=== PATIENT | male | born 1995 | race African-American/Black ===

== ENCOUNTER 2017-04-30 17:35 | Emergency (ER) | payer SELFPAY | END 2017-04-30 17:49 | disposition left against medical advice (07) | LOC: UCEAST 17:35 | DX: S01.511A Laceration without foreign body of lip, initial encounter (principal); X58.XXXA Exposure to other specified factors, initial encounter; Z53.21 Procedure and treatment not carried out due to patient leaving prior to being seen by health care provider ==

== ENCOUNTER 2019-02-16 17:25 | Emergency (ER) | payer OTHER ==
[2019-02-16] MEDS ORDERED: Lorazepam PYXIS KEY PRN (18:23)
[2019-02-16] MEDS ORDERED: LORazepam INJ* 2 MG/ML 1 ML VIAL IM ONE (18:23)
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
[2019-02-16 18:34] LABS: ABS Lymphocytes 0.6 10^3/ul (1.0-4.8); ABS Monocytes 0.9 10^3/ul (0-0.8); ABS Neutrophils 11.4 10^3/ul (1.5-7.7); Hematocrit 47 % (42-52); Hemoglobin 16.5 g/dL (14.0-18.0); Lymphocyte % 4.6 %; Mean Corpuscular HGB Conc 35 g/dL (31-36); Mean Corpuscular Hemoglobin 31 pg (27-31); Mean Corpuscular Volume 90 fL (80-94); Mean Platelet Volume 7.9 fL (7.4-10.4); Platelet Count 234 10^3/uL (150-450); Red Blood Count 5.27 10^6 /uL (4.18-5.48); Red Cell Distribution Width 13 % (10-15); White Blood Count 12.9 10^3/uL (3.5-10.8)
[2019-02-16 18:36] LABS: Urine Appearance Clear; Urine Bacteria Absent (Absent); Urine Bilirubin Negative (Negative); Urine Blood 3+ (Negative); Urine Color Yellow; Urine Glucose Negative (Negative); Urine Ketones Negative (Negative); Urine Nitrite Negative (Negative); Urine Protein 2+(100 mg/dL) (Negative); Urine Red Blood Cell Trace(0-2/hpf) (Absent); Urine Specific Gravity 1.011 (1.010-1.030); Urine Urobilinogen Negative (Negative); Urine White Blood Cell Absent (Absent)
[2019-02-16 18:40] LABS: INR 1.06 (0.82-1.09)
[2019-02-16] MEDS ORDERED: Lorazepam PYXIS KEY ONE (18:41)
[2019-02-16 18:51] LABS: ALT 17 U/L (7-52); AST 20 U/L (13-39); Albumin 4.9 g/dL (3.2-5.2); Albumin/Globulin Ratio 1.6 (1-3); Alkaline Phosphatase 46 U/L (34-104); Anion Gap 7 mmol/L (2-11); Blood Urea Nitrogen 15 mg/dL (6-24); CO2 Carbon Dioxide 26 mmol/L (22-32); Calcium 10.5 mg/dL (8.6-10.3); Chloride 105 mmol/L (101-111); EGFR African American 94.5 (>60); EGFR Non-African American 78.1 (>60); Glucose 107 mg/dL (70-100); Potassium 4.1 mmol/L (3.5-5.0); Sodium 138 mmol/L (135-145); Total Protein 7.9 g/dL (6.4-8.9)
[2019-02-16 19:21] LABS: Alcohol < 10 mg/dL (<10)
[2019-02-16 21:09] VITALS: BP 110/65
== END 2019-02-16 21:00 | disposition home or self-care (01) ==
LOC: ED 17:25
DX: R56.9 Unspecified convulsions (principal); F41.9 Anxiety disorder, unspecified; R60.9 Edema, unspecified; Z72.0 Tobacco use
CPT/HCPCS: 36415; 70450; 80053; 80320; 81003; 81015; 83605; 83735; 85025; 85610; 99284; G0480; J2060

== ENCOUNTER 2019-02-18 18:23 | Emergency (ER) | payer OTHER ==
[2019-02-18 19:26] VITALS: BP 120/80
[2019-02-18] MEDS ORDERED: Ibuprofen TAB* 600 MG PO ONE (19:40)
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
== END 2019-02-18 20:26 | disposition home or self-care (01) ==
LOC: UCEAST 18:23
DX: S20.211A Contusion of right front wall of thorax, initial encounter (principal); F17.210 Nicotine dependence, cigarettes, uncomplicated; Z88.1 Allergy status to other antibiotic agents; W22.09XA Striking against other stationary object, initial encounter; Y92.9 Unspecified place or not applicable
CPT/HCPCS: 99212; A9270-GY; G0463